=== PATIENT | female | born 1960 | race Caucasian/White ===

== ENCOUNTER 2018-07-07 10:43 | Outpatient (CLI) | payer OTHER ==
--- NOTE | 2018-07-13 13:33 | MMO ---
BILATERAL DIGITAL SCREENING MAMMOGRAMS: HISTORY: A 58-year-old female presents for digital screening mammography. COMPARISON: 06/20/2015 FINDINGS: Scattered fibroglandular changes are noted bilaterally. There are some typically benign calcificatio ns bilaterally. There is an asymmetric density, which has a slightly different appearance than on th e prior 06/20/2015 study, in the outer aspect of the right breast, on the CC view only. This may jus t represent some asymmetric breast tissue. Additional imaging is needed for further assessment. IMPRESSION: BI-RADS Category 0-Incomplete. Follow-up right unilateral diagnostic mammogram, to include focal compression CC view with 3D imaging , as well as internal and external rotation views in the CC projection, and a 90 degree ML with 3D is recommended. Additionally, ultrasound should be scheduled and performed if needed. POS: ANGELA
== END 2018-07-07 10:44 | disposition home or self-care (01) ==
LOC: SCSMAMMO 10:43
PROVIDERS: ATTEND Family Medicine
DX: Z12.31 Encounter for screening mammogram for malignant neoplasm of breast (principal)
CPT/HCPCS: 77067

== ENCOUNTER 2018-08-26 08:07 | Outpatient (CLI) | payer OTHER | END 2018-08-26 08:08 | disposition home or self-care (01) | LOC: BICMAMMO 08:07 | PROVIDERS: ATTEND Family Medicine | DX: R92.2 Inconclusive mammogram (principal) | CPT/HCPCS: G0279 ==

== ENCOUNTER 2018-09-20 13:38 | Observation (INO) | payer OTHER ==
[2018-09-20] MEDS ORDERED: Nitroglycerin 2% Ointment 1 INCH/1 GM Packet ONE (14:05)
[2018-09-20 14:18] LABS: #Basophils 0.1 thou/uL (0.0-0.2); #Eosinphils 0.4 thou/uL (0.0-0.7); #Lymphocytes 1.8 thou/uL (1.20-3.40); #Monocytes 0.7 thou/uL (0.11-0.59); %Basophils 0.6 % (0.0-1.0); %Eosinophils 4.2 % (0.0-10.0); %Lymphocytes 20.6 % (21.0-51.0); %Monocytes 7.5 % (0.0-10.0); %Neutrophils 67.1 % (42.0-75.0); Hemoglobin 12.7 g/dL (12.0-16.0); Mean Corpuscular HGB CONC 32.3 g/dL (32.0-36.0); Mean Corpuscular Hemoglobin 29.2 pg (27.0-31.0); Mean Corpuscular Volume 90.6 fL (78.0-98.0); Mean Platelet Volume 7.9 fL (7.4-10.4); Platelet Count 196 thou/uL (130-400); RBC Distribution Width 12.2 % (11.5-14.5); Red Blood Cell (RBC) Count 4.33 mill/uL (4.20-5.40); White Blood Cell (WBC) Count 8.9 thou/uL (4.8-10.8)
[2018-09-20 14:33] LABS: ALT (SGPT) 12 U/L (8-55); AST (SGOT) 17 U/L (5-34); Albumin 3.7 g/dL (3.5-5.0); Alkaline Phosphatase 85 U/L (40-150); Anion Gap 12 mmol/L (10-20); BUN (Urea Nitrogen) 15 mg/dL (9.8-20.1); Bilirubin, Total 0.3 mg/dL (0.2-1.2); CK (CPK) 79 U/L (29-168); Calc. Creatinine Clearance 0 mL/min (70-130); Calcium 9.6 mg/dL (7.8-10.44); Carbon Dioxide 26 mmol/L (22-29); Chloride 105 mmol/L (98-107); Estimated GFR-MDRD 62; Globulin 3.1 g/dL (2.4-3.5); Glucose 105 mg/dL (70-105); Protein, Total 6.8 g/dL (6.0-8.3); Sodium 139 mmol/L (136-145)
[2018-09-20] MEDS ORDERED: Aspirin 325 MG TAB ONE (15:52)
--- NOTE | 2018-09-20 15:55 | RAD ---
CHEST 1 VIEW: Date: 09/20/18 HISTORY: Chest pain. FINDINGS: Heart size within normal limits. There are atherosclerotic changes of the aorta. The lungs are clear of infiltrates. There are no signs of failure. IMPRESSION: No active intrathoracic disease. POS: [facility]
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
[2018-09-20] MEDS ORDERED: Acetaminophen 325 MG TAB PO PRN (18:58)
[2018-09-20] MEDS ORDERED: Nitroglycerin 0.4 MG TAB (25 Tab Bottle) PO PRN (18:58)
[2018-09-20 19:02] VITALS: BMI 43.4
[2018-09-20] MEDS: PROVENTIL INHALER 6.7 G (200 INHALATIONS) INH SCH ×2 (19:26→22:35)
[2018-09-21] MEDS: PROVENTIL INHALER 6.7 G (200 INHALATIONS) INH SCH ×6 (02:45→22:13)
[2018-09-21 03:09] LABS: Amphetamine Not Detected (NotDetected); Barbiturates Screen Not Detected (NotDetected); Benzodiazepine Screen Not Detected (NotDetected); Cocaine Metabolite Screen Not Detected (NotDetected); Medtox Control Line Valid? VALID (VALID); Medtox Reader # READER 4; Methadone Not Detected (NotDetected); Methamphetamine Not Detected (NotDetected); Opiate Screen Not Detected (NotDetected); Oxycodone Screen Not Detected (NotDetected); Phencyclidine (PCP) Not Detected (NotDetected); THC/Cannabinoid Screen Not Detected (NotDetected); Tricyclic Screen Not Detected (NotDetected)
[2018-09-21] MEDS: Levothyroxine Sodium 125 MCG TAB PO SCH (05:40)
--- NOTE | 2018-09-21 06:04 | PDOC.FM ---
- Subjective Subjective: Pt did well overnight. She reports one episode of chest pain that was relieved by positioning. She denies SOB, chest pain, nausea, vomiting, or abdominal pain. - Objective MAR Reviewed: Yes Vital Signs & Weight: Vital Signs (12 hours) Temp Pulse Resp BP BP Pulse Ox 09/21/18 03:45 74 18 104/55 L 93 L 09/20/18 23:08 98.6 F 78 12 105/53 L 95 09/20/18 19:26 66 18 95 09/20/18 18:20 98.1 F 81 16 125/58 L 98 Weight Weight 104.462 kg Result Diagrams: 09/20/18 14:09 09/20/18 14:09 Phys Exam - Physical Examination Constitutional: NAD HEENT: PERRLA, moist MMs Neck: no JVD, full ROM Respiratory: no wheezing, no rales, clear to auscultation bilateral Cardiovascular: no rub 2/6 systolic murmur heard at right sternal border Regular rate, irregular rhythm Gastrointestinal: soft, non-tender, no distention Musculoskeletal: no edema, pulses present Neurological: moves all 4 limbs Psychiatric: normal affect, A&O x 3 Skin: cap refill <2 seconds Dx/Plan (1) Chest pain, rule out acute myocardial infarction Code(s): R07.9 - CHEST PAIN, UNSPECIFIED Status: Acute (2) Costochondritis Code(s): M94.0 - CHONDROCOSTAL JUNCTION SYNDROME [TIETZE] Status: Acute (3) Asthma Code(s): J45.909 - UNSPECIFIED ASTHMA, UNCOMPLICATED Status: Acute (4) Hypothyroid Code(s): E03.9 - HYPOTHYROIDISM, UNSPECIFIED Status: Acute (5) HTN (hypertension) Code(s): I10 - ESSENTIAL (PRIMARY) HYPERTENSION Status: Acute (6) HLD (hyperlipidemia) Code(s): E78.5 - HYPERLIPIDEMIA, UNSPECIFIED Status: Acute - Plan Plan: This is a 58 yo female with a pmh of HTN, HLD, tobacco abuse, meth abuse Chest pain r/o, likely 2/2 MSK pain vs ischemia -Admit to tele obs -Consult cardiology this morning -Heart score of 4 -s/p nitro paste and aspirin 325mg in ED -Troponin neg x3 -TSH wnl -BNP 177.7 -UDS negative -Recent pharm nuclear stress was abnormal on 2/15 -NPO this morning, holding home aspirin -CXR negative for acute cardiopulmonary disease -EKG on admission shows sinus arrhythmia, overnight pt remained in sinus arrhythmia HTN -Continue home lisinopril Hypothyroidism -Continue levothyroxine -TSH wnl Asthma -Stable, continue home albuterol
[2018-09-21] MEDS: Atorvastatin Calcium 20 MG TAB PO SCH (08:45)
[2018-09-21] MEDS: Aspirin 81 mg Enteric Coated Tablet PO SCH (08:45)
[2018-09-21] MEDS: Lisinopril 10 MG TAB PO SCH (08:45)
[2018-09-21] MEDS ORDERED: Communication Order-Pharmacy FS SCH (09:45)
[2018-09-21] MEDS ORDERED: Iopamidol 370 76% 100 ML VIAL ONE (10:33)
--- NOTE | 2018-09-21 10:42 | CON ---
DATE OF CONSULTATION: HISTORY OF PRESENT ILLNESS: The patient is a 58-year-old woman who presents for evaluation of chest discomfort. The patient has a history of paroxysmal atrial fibrillation. She recently underwent a cardiac evaluation including a stress test, which revealed normal left ventricular systolic function, ejection fraction 62% with evidence of ischemia. The patient presented in the emergency room with acute onset of chest discomfort. She felt weak and lightheaded. She presented to the emergency room for further evaluation. PAST MEDICAL HISTORY: 1. Hypertension. 2. Thyroid disorder. 3. Asthma. PAST SURGICAL HISTORY: 1. Ovarian surgery. 2. Knee surgery. SOCIAL HISTORY: She is a former smoker. Long history of tobacco abuse and illicit drug use. FAMILY HISTORY: Positive family history of heart disease. MEDICATIONS ON ADMISSION: 1. Lisinopril 10 mg daily. 2. Synthroid 125 mcg daily. 3. Lipitor 81 mg daily. 4. Aspirin 81 daily. REVIEW OF SYSTEMS: Ten point system otherwise unremarkable. No history of easy bruising or bleeding or bright red blood per rectum. PHYSICAL EXAMINATION: GENERAL: Obese woman, No acute distress. VITAL SIGNS: Blood pressure was 109/55. NECK: No jugular distention. LUNGS: Clear to auscultation. HEART: Regular rate and rhythm. Normal S1 and S2. No murmurs. ABDOMEN: Nondistended. EXTREMITIES: Show no edema. SKIN: Warm and dry. NEUROLOGIC: Nonfocal. LABORATORY RESULTS: Her white blood count is 8.9, hemoglobin 12.7, hematocrit 39.3, platelets were 196. Her sodium was 139, potassium 4.0, chloride 105, bicarb 26 , BUN 15, creatinine 0.93. Troponin less than 0.01. BNP was 177. Her EKG revealed her to have normal sinus rhythm with premature atrial contractions. IMPRESSION: 1. Chest pain. 2. History of normal stress test. 3. Hypertension. 4. History of tobacco abuse. 5. History of illicit drug use. 6. History of paroxysmal atrial fibrillation. 7. Obesity. This patient presents with recurrent chest discomfort. She had a recent stress that revealed evidence of ischemia. I would recommend proceeding with a cardiac catheterization to evaluate the extent of coronary artery disease. I explained the risks involved with the procedure including PA, bleeding, stroke, cardiac arrhythmias and cardiac . The patient understands these risks and wished to proceed. Job ID: [id number] [facility]
--- NOTE | 2018-09-21 11:49 | PRG ---
DATE OF SERVICE: 09/21/2018 SUBJECTIVE: Ms. Fatima is a pleasant 58-year-old female, who several weeks ago, had an abnormal stress test that was obtained because of shortness of breath. Her stress test was reactive, and she was re-admitted with recurrent episodes of chest pain that really some more MSK; however, given that she has had an abnormal stress test, which will be seen by Cardiology, likely taken for cardiac catheterization later today. In the event clinically, she is stable. Vital signs are stable and she is currently chest pain free. Job ID: [id number]
[2018-09-21] MEDS ORDERED: Nitroglycerin 0.4 MG TAB (25 Tab Bottle) SL PRN (11:59)
[2018-09-21] MEDS ORDERED: Acetaminophen/Codeine 30-300mg Tablet PO PRN ×2 (11:59)
[2018-09-21] MEDS ORDERED: Sodium Chloride 0.9% 200 ML IV PRN (11:59)
[2018-09-22] MEDS: PROVENTIL INHALER 6.7 G (200 INHALATIONS) INH SCH ×4 (02:20→14:00)
[2018-09-22] MEDS: Levothyroxine Sodium 125 MCG TAB PO SCH (04:05)
--- NOTE | 2018-09-22 05:52 | PDOC.FM ---
- Subjective Subjective: Pt denies chest pain overnight. She reports increased cough with sputum production as well as nasal congestion. She denies fever, chills, ear pain, and sore. She denies SOB. - Objective MAR Reviewed: Yes Vital Signs & Weight: Vital Signs (12 hours) Temp Pulse Resp BP BP Pulse Ox 09/22/18 04:04 98 F 76 18 114/57 L 96 09/22/18 02:20 76 16 97 09/21/18 22:13 89 16 96 09/21/18 19:35 97.9 F 78 20 114/53 L 96 09/21/18 18:59 87 16 98 Weight Weight 104.462 kg I&O: 09/20/18 09/21/18 09/22/18 06:59 06:59 06:59 Intake Total 1000 Output Total 2400 Balance -1400 Result Diagrams: 09/20/18 14:09 09/20/18 14:09 Phys Exam - Physical Examination Constitutional: NAD HEENT: PERRLA, moist MMs Neck: supple, full ROM Respiratory: no wheezing, no rales, no rhonchi, clear to auscultation bilateral Cardiovascular: RRR, no significant murmur, no rub Tender to palpation at left 5th rib Gastrointestinal: soft, non-tender, no distention, positive bowel sounds Musculoskeletal: no edema, pulses present Neurological: normal sensation, moves all 4 limbs Psychiatric: normal affect, A&O x 3 Skin: cap refill <2 seconds Dx/Plan (1) Chest pain, rule out acute myocardial infarction Code(s): R07.9 - CHEST PAIN, UNSPECIFIED Status: Acute (2) Costochondritis Code(s): M94.0 - CHONDROCOSTAL JUNCTION SYNDROME [TIETZE] Status: Acute (3) Asthma Code(s): J45.909 - UNSPECIFIED ASTHMA, UNCOMPLICATED Status: Acute (4) Hypothyroid Code(s): E03.9 - HYPOTHYROIDISM, UNSPECIFIED Status: Acute (5) HTN (hypertension) Code(s): I10 - ESSENTIAL (PRIMARY) HYPERTENSION Status: Acute (6) HLD (hyperlipidemia) Code(s): E78.5 - HYPERLIPIDEMIA, UNSPECIFIED Status: Acute - Plan Plan: This is a 58 yo female with a pmh of HTN, HLD, tobacco abuse, meth abuse Chest pain r/o, likely 2/2 MSK pain vs ischemia -Heart score of 4 -Troponin neg x3 -TSH wnl -BNP 177.7 -UDS negative -Recent pharm nuclear stress was abnormal on 09/10 -EKG on admission shows sinus arrhythmia, overnight pt remained in sinus arrhythmia -Heart cath shows no significant coronary disease, pt likely DC today restart aspirin HTN -Continue home lisinopril Hypothyroidism -Continue levothyroxine -TSH wnl Asthma -Stable, continue home albuterol Allergic rhinitis -Adding flonase and mucinex
[2018-09-22] MEDS: Atorvastatin Calcium 20 MG TAB PO SCH (08:59)
[2018-09-22] MEDS: Aspirin 81 mg Enteric Coated Tablet PO SCH (08:59)
[2018-09-22] MEDS: Lisinopril 10 MG TAB PO SCH (08:59)
[2018-09-22 12:09] VITALS: BP 132/62; TEMP 98.3
--- NOTE | 2018-09-22 12:43 | PRG ---
DATE OF SERVICE: 09/22/2018 SUBJECTIVE: Ms. Fatima underwent cardiac catheterization and has normal coronary arteries. She will be discharged. Job ID: [id number]
--- NOTE | 2018-09-23 11:57 | DIS ---
DATE OF ADMISSION: 09/20/2018 DATE OF DISCHARGE: 09/22/2018 RESIDENT: Honorio Ann DO. ADMITTING ATTENDING: Lakeshia Valdes MD CONSULTS: Dr. Pardo, cardiology. PROCEDURES: 1. Chest x-ray showing no active intrathoracic disease. 2. Cardiac cath showing no cardiac stenosis of the coronary arteries. PRIMARY DIAGNOSIS: Costochondritis. SECONDARY DIAGNOSES: Atrial fibrillation, hypothyroidism, asthma, hyperlipidemia, hypertension, anxiety/depression. DISCHARGE MEDICATIONS: 1. Tylenol 650 mg p.o. q.4 hours p.r.n. pain. 2. Albuterol one inhalation q.4 hours p.r.n. wheezing and cough. 3. Aspirin 81 mg p.o. daily. 4. Atorvastatin 20 mg p.o. daily. 5. Levothyroxine 125 mcg p.o. daily. 6. Lisinopril 10 mg p.o. daily. 7. Asmanex two inhalations at bedtime. 8. Naproxen 500 mg p.o. b.i.d. DISCONTINUED MEDICATIONS: None. BRIEF HISTORY OF PRESENT ILLNESS/HOSPITAL COURSE: This is a 58-year-old female with past medical history of hypertension, hypothyroidism, meth abuse and tobacco abuse, who [facility] ER from [facility] with chief complaint of chest pain. She stated the pain had started earlier that day and was sharp in nature. States the pain started when she turned her head. She felt it in her chest. PHYSICAL EXAMINATION: The patient had tenderness to palpation of the 5th rib on the left side of the sternum as well as reproduction of the pain with palpation of the posterior angle of the rib 5. The patient's vitals were stable on admission. Troponins were negative x3. BNP was 177. TSH was normal. The patient was admitted and cardiology was consulted and the cath as stated above was performed. Following a normal catheterization, the patient was cleared for discharge to follow up outpatient with Cardiology. DISPOSITION: Stable. DISCHARGE INSTRUCTIONS: 1. Location: Custodial. 2. Diet: Heart healthy. 3. Activity: As tolerated. 4. Follow up with Dr. Sonny Pardo, cardiology and Dr. Radha Cardona, PCP. Job ID: [id number]
== END 2018-09-22 14:10 | disposition home or self-care (01) ==
LOC: ERS 13:38 → 2SW 15:58
PROVIDERS: ADMIT Family Medicine; ATTEND Family Medicine
PROC: 4A023N7 Measurement of Cardiac Sampling and Pressure, Left Heart, Percutaneous Approach (ICD-10-PCS; principal; 2018-09-22)
PROC: B2111ZZ Fluoroscopy of Multiple Coronary Arteries using Low Osmolar Contrast (ICD-10-PCS; 2018-09-22)
DX: M94.0 Chondrocostal junction syndrome [Tietze] (principal); E03.9 Hypothyroidism, unspecified; J45.909 Unspecified asthma, uncomplicated; E78.5 Hyperlipidemia, unspecified; I10 Essential (primary) hypertension; F41.8 Other specified anxiety disorders; Z87.891 Personal history of nicotine dependence; F15.11 Other stimulant abuse, in remission; I48.0 Paroxysmal atrial fibrillation; E66.9 Obesity, unspecified; Z68.41 Body mass index [BMI] 40.0-44.9, adult; Z79.82 Long term (current) use of aspirin; Z79.899 Other long term (current) drug therapy; Z88.2 Allergy status to sulfonamides
CPT/HCPCS: 36415; 71045; 80053; 80306; 82550; 83880; 84443; 84484; 85025; 93005; 93458; 94760; C1769; G0378; J1644; Q9967

== ENCOUNTER 2018-10-23 12:43 | Observation (INO) | payer OTHER ==
--- NOTE | 2018-10-23 13:25 | RAD ---
FChest AP view INDICATION: Shortness of breath COMPARISON: September 20, 2018 FINDINGS: The lungs are clear. The heart size is normal. No pleural effusion or pneumothorax is evide nt. No acute osseous abnormality is noted. IMPRESSION: No acute cardiopulmonary abnormality.
[2018-10-23 13:44] LABS: #Eosinphils 0.8 thou/uL (0.0-0.7); #Lymphocytes 1.8 thou/uL (1.20-3.40); #Monocytes 0.9 thou/uL (0.11-0.59); #Neutrophils 3.8 thou/uL (1.40-6.50); %Basophils 0.6 % (0.0-1.0); %Eosinophils 10.6 % (0.0-10.0); %Lymphocytes 24.9 % (21.0-51.0); %Monocytes 11.7 % (0.0-10.0); %Neutrophils 52.2 % (42.0-75.0); Hemoglobin 12.4 g/dL (12.0-16.0); Mean Corpuscular HGB CONC 32.9 g/dL (32.0-36.0); Mean Corpuscular Hemoglobin 29.3 pg (27.0-31.0); Mean Platelet Volume 7.5 fL (7.4-10.4); Platelet Count 195 thou/uL (130-400); RBC Distribution Width 12.7 % (11.5-14.5); Red Blood Cell (RBC) Count 4.25 mill/uL (4.20-5.40); White Blood Cell (WBC) Count 7.2 thou/uL (4.8-10.8)
[2018-10-23 14:05] LABS: ALT (SGPT) 12 U/L (8-55); AST (SGOT) 19 U/L (5-34); Albumin 3.6 g/dL (3.5-5.0); Alkaline Phosphatase 80 U/L (40-150); Anion Gap 11 mmol/L (10-20); BUN (Urea Nitrogen) 12 mg/dL (9.8-20.1); Bilirubin, Total 0.3 mg/dL (0.2-1.2); Calc. Creatinine Clearance 0 mL/min (70-130); Calcium 9.3 mg/dL (7.8-10.44); Carbon Dioxide 26 mmol/L (22-29); Chloride 106 mmol/L (98-107); Estimated GFR-MDRD 64; Globulin 3.4 g/dL (2.4-3.5); Glucose 91 mg/dL (70-105); Potassium 4.4 mmol/L (3.5-5.1); Sodium 139 mmol/L (136-145)
[2018-10-23] MEDS ORDERED: methylPREDNISolone Sod Succ/PF 125 MG/2 ML VIAL ONE (14:31)
[2018-10-23] MEDS ORDERED: Senokot S 8.6-50 MG TAB PO PRN (16:11)
[2018-10-23] MEDS ORDERED: HYDROcodone/Acetaminophen 7.5/325 mg Tablet PO PRN (16:11)
[2018-10-23] MEDS ORDERED: HYDROcodone/Acetaminophen 5/325 mg Tablet PO PRN (16:11)
[2018-10-23] MEDS ORDERED: Acetaminophen 325 MG TAB PO PRN (16:11)
[2018-10-23 17:52] VITALS: BMI 42.1
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
[2018-10-23] MEDS: methylPREDNISolone Sod Succ 40 MG VIAL IVP SCH (18:06)
[2018-10-23] MEDS: Famotidine 20 MG TAB PO SCH (20:37)
[2018-10-24] MEDS: methylPREDNISolone Sod Succ 40 MG VIAL IVP SCH ×4 (00:19→18:00)
[2018-10-24 05:32] LABS: #Lymphocytes 0.7 thou/uL (1.20-3.40); #Monocytes 0.1 thou/uL (0.11-0.59); #Neutrophils 5.2 thou/uL (1.40-6.50); %Basophils 0.1 % (0.0-1.0); %Eosinophils 0.5 % (0.0-10.0); %Lymphocytes 11.6 % (21.0-51.0); %Monocytes 2.2 % (0.0-10.0); %Neutrophils 85.6 % (42.0-75.0); Hemoglobin 12.3 g/dL (12.0-16.0); Mean Corpuscular HGB CONC 32.1 g/dL (32.0-36.0); Mean Corpuscular Hemoglobin 28.6 pg (27.0-31.0); Mean Platelet Volume 7.9 fL (7.4-10.4); Platelet Count 203 thou/uL (130-400); RBC Distribution Width 12.6 % (11.5-14.5); Red Blood Cell (RBC) Count 4.29 mill/uL (4.20-5.40)
[2018-10-24 05:55] LABS: ALT (SGPT) 10 U/L (8-55); AST (SGOT) 14 U/L (5-34); Albumin 3.5 g/dL (3.5-5.0); Alkaline Phosphatase 79 U/L (40-150); Anion Gap 14 mmol/L (10-20); BUN (Urea Nitrogen) 14 mg/dL (9.8-20.1); Bilirubin, Total 0.3 mg/dL (0.2-1.2); Calc. Creatinine Clearance 93 mL/min (70-130); Calcium 9.8 mg/dL (7.8-10.44); Carbon Dioxide 25 mmol/L (22-29); Chloride 104 mmol/L (98-107); Estimated GFR-MDRD 52; Globulin 3.4 g/dL (2.4-3.5); Glucose 184 mg/dL (70-105); Potassium 4.8 mmol/L (3.5-5.1); Protein, Total 6.9 g/dL (6.0-8.3); Sodium 138 mmol/L (136-145)
[2018-10-24] MEDS ORDERED: Levothyroxine Sodium 125 MCG TAB PO SCH (06:00)
[2018-10-24 06:13] LABS: Free T4 (Free Thyroxine) 1.11 ng/dL (0.70-1.48); Thyroid Stimulating Hormone 0.1386 uIU/mL (0.35-4.94)
[2018-10-24] MEDS ORDERED: Aspirin 81 mg Enteric Coated Tablet PO SCH (09:00)
[2018-10-24] MEDS ORDERED: Atorvastatin Calcium 20 MG TAB PO SCH (09:00)
[2018-10-24] MEDS ORDERED: Lisinopril 10 MG TAB PO SCH (09:00)
[2018-10-24] MEDS ORDERED: Enoxaparin Sodium 40 MG/0.4 ML SYRINGE SC SCH (09:00)
[2018-10-24] MEDS: Famotidine 20 MG TAB PO SCH (09:11)
--- NOTE | 2018-10-24 11:36 | PRG ---
DATE OF SERVICE: 10/24/2018 SUBJECTIVE: The patient still has some cough and still feels a little tightness in her chest. She was able to get up and ambulate in the hallway and her saturations stayed between 92% and 95% on room air. She is currently on room air while sitting in her bed and saturations remained good. OBJECTIVE: VITAL SIGNS: Temperature is 98.3, pulse 64, respirations 12, O2 saturation 96% on room air. GENERAL APPEARANCE: Age-appropriate female, in no distress. She is talking in full sentences. She does have some coughing. HEART: Regular rate and rhythm without murmur. LUNGS: Notable for some end-expiratory wheezes, but fairly good air exchange in spite of that. ABDOMEN: Benign. No peripheral edema. IMPRESSION AND PLAN: 1. Reactive airway disease secondary to exposure to bleach. She appears to be improving. Saturations are better. Unfortunately, she is going to go back to the half-way, it is unclear what the situation will be when she is there as far as being re-exposed to any bleach. She will get up and ambulate again this afternoon. If her saturations remain adequate with ambulation, we will anticipate discharge on a short steroid taper. 2. Hypertension, stable. 3. Hypothyroidism, stable. 4. Hyperlipidemia, stable. Job ID: [id number]
[2018-10-24 15:46] VITALS: BP 148/76; TEMP 98.3
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
== END 2018-10-24 18:08 ==
LOC: ERS 12:43 → 2SW 15:15
PROVIDERS: ADMIT Internal Medicine; ATTEND Internal Medicine
DX: J06.9 Acute upper respiratory infection, unspecified (principal); T54.91XA Toxic effect of unspecified corrosive substance, accidental (unintentional), initial encounter; J68.3 Other acute and subacute respiratory conditions due to chemicals, gases, fumes and vapors; J44.1 Chronic obstructive pulmonary disease with (acute) exacerbation; E03.9 Hypothyroidism, unspecified; E78.5 Hyperlipidemia, unspecified; I10 Essential (primary) hypertension; F41.9 Anxiety disorder, unspecified; F32.9 Major depressive disorder, single episode, unspecified; F15.11 Other stimulant abuse, in remission; I48.0 Paroxysmal atrial fibrillation; Z87.891 Personal history of nicotine dependence; Z79.82 Long term (current) use of aspirin; Z79.899 Other long term (current) drug therapy; Z88.2 Allergy status to sulfonamides
CPT/HCPCS: 36415; 71045; 80053; 83735; 83880; 84439; 84443; 84481; 84484; 85025; 93005; 94640; 96372; 96374; 96376; G0378; J1650; J2920; J2930; J7620